=== PATIENT | male | born 2000 | race African-American/Black ===

== ENCOUNTER 2023-10-09 01:39 | Emergency (ER) | payer MEDICAID ==
[~2023-10-09] VITALS: Ht 182.9 cm; Wt 64.0 kg
[2023-10-09 01:49] VITALS: BP 144/70; PULSE 90; RESP 14; TEMP 98.1; O2SAT 97
== END 2023-10-09 06:26 | disposition home or self-care (01) ==
LOC: ER 01:39
DX: B34.9 Viral infection, unspecified (principal); J45.909 Unspecified asthma, uncomplicated; Z91.013 Allergy to seafood; Z91.011 Allergy to milk products; Z91.018 Allergy to other foods; Z88.8 Allergy status to other drugs, medicaments and biological substances
CPT/HCPCS: 99283

== ENCOUNTER 2024-07-03 20:07 | Emergency (ER) | payer MEDICAID ==
[~2024-07-03] VITALS: Ht 182.9 cm; Wt 75.0 kg
[2024-07-03 20:15] VITALS: TEMP 97
[2024-07-03] MEDS: METHYLPREDNISOLONE SOD SUCC 125MG/2ML (ACT-O-VIAL) IV STA (21:00)
[2024-07-03] MEDS: SODIUM CHLORIDE 0.9% 1,000 ML IV ONE (21:00)
[2024-07-03 21:06] LABS: CHLORIDE 108 mEq/L (98-107); POTASSIUM 3.5 mEq/L (3.5-5.1); SODIUM 143 mEq/L (136-145)
[2024-07-03 21:07] LABS: CARBON DIOXIDE 28 mEq/L (21-32)
[2024-07-03 21:12] LABS: CREATININE 1.1 mg/dL (0.6-1.3); GLUCOSE 97 mg/dL (70-105)
[2024-07-03 21:13] LABS: UREA NITROGEN BLOOD 9 mg/dL (9-23)
[2024-07-03 21:25] LABS: BASOPHILS % 0.5 % (0.0-2.0); EOSINOPHILS % 5.7 % (0.0-5.0); HEMATOCRIT. 49.9 % (42.0-52.0); HEMOGLOBIN. 16.1 g/dL (14.0-18.0); MEAN CORPUSCULAR HGB CONC 32.4 g/dL (31.0-37.0); MEAN CORPUSCULAR VOLUME 89.5 fL (80.0-94.0); MEAN PLATELET VOLUME 9.9 fl (7.4-10.4); MONOCYTES % 6.6 % (2.0-8.0); NEUTROPHILS % 51.2 % (40.0-76.0); PLATELET 186 x1000/uL (130-400); RED BLOOD CELL COUNT 5.57 mill/uL (4.7-6.1); RED CELL DISTRIBUTION WIDTH 14.4 % (11.6-14.6); WHITE BLOOD COUNT 9.4 x1000/uL (4.5-11.0)
[2024-07-03] MEDS: ALBUTEROL (0.083%) 2.5MG/3ML NEB HHN STA (21:50)
[2024-07-03] MEDS: IPRATROPIUM BROMIDE (0.02%) 0.5MG/2.5ML NEB HHN STA (21:50)
[2024-07-03 21:52] VITALS: PULSE 89; RESP 18; O2SAT 100
[2024-07-03] MEDS ORDERED: P20 MT (22:19)
[2024-07-03] MEDS ORDERED: ALBU90AE INH (22:19)
[2024-07-03] MEDS ORDERED: ALBU2.5V13 NEB (22:19)
[2024-07-03 22:26] VITALS: BP 115/67; PULSE 80; RESP 15; O2SAT 100
== END 2024-07-03 22:27 | disposition home or self-care (01) ==
LOC: ER 20:07
DX: J45.901 Unspecified asthma with (acute) exacerbation (principal); Z91.013 Allergy to seafood; Z91.011 Allergy to milk products; Z91.018 Allergy to other foods
CPT/HCPCS: 80048; 85025; 36415; 71045; 94640; 93005; 96361; 96374; 99285; J2919; Z7610 ×3; J7030